=== PATIENT | female | born 1995 | race Caucasian/White ===

== ENCOUNTER 2024-02-26 20:54 | Inpatient (IN) ==
[2024-02-26] MEDS ORDERED: Dinoprostone 10 MG VAG.SUPP VAGINAL ONE (21:29)
[2024-02-26] MEDS ORDERED: Lactated Ringers 1000 ml BAG 1,000 ML IV SCH (22:00)
[2024-02-27] MEDS: Buffered Lidocaine 1% SYRIN 1 ml INTRADERM ONE (10:30)
[2024-02-27] MEDS: Lactated Ringers 1000 ml BAG 1,000 ML IV ONE ×2 (10:31→19:30)
[2024-02-27 10:36] LABS: ABS Lymphocytes 1.5 10^3/uL (1.0-4.8); ABS Monocytes 0.7 10^3/uL (0.0-0.9); ABS Nucleated RBC 0.01 10^3/ul; Eosinophil % 0.4 %; Hematocrit 35.1 % (35-45); Hemoglobin 11.8 g/dL (11.5-14.3); Lymphocyte % 18.6 %; Mean Corpuscular Hemoglobin 26.6 pg (27-33); Mean Corpuscular Hgb Conc 33.8 g/dL (31-36); Mean Corpuscular Volume 78.7 fL (80-97); Mean Platelet Volume 8.4 fL (7.5-11.2); Nucleated Red Blood Cells % 0.2 %/100WBC (0.0-0.8); Platelet Count 243 10^3/uL (150-450); Red Blood Count 4.46 10^6/uL (3.63-4.92); White Blood Count 8.3 10^3/uL (3.8-11.8)
[2024-02-27 10:46] LABS: Activated Partial Thrombo Time 18.9 seconds (26.0-38.0); INR 0.95 (0.83-1.13)
[2024-02-27 10:54] LABS: Platelet Count 232 10^3/ul (150-450)
[2024-02-27 11:10] LABS: Schistocytes ABSENT
[2024-02-27 13:49] LABS: Urine Benzodiazepine Screen None Detected (None Detect); Urine Cannabinoids Screen None Detected (None Detect); Urine Opiates Screen None Detected (None Detect)
[2024-02-27] MEDS: miSOPROStol 100 mcg TAB PO SCH (14:26)
[2024-02-27] MEDS ORDERED: Sodium Citrate/Citric Acid LIQ 15 ML UDC PO PRN (19:00)
[2024-02-27] MEDS ORDERED: Midazolam 2 mg/2 ml VIAL 1 mg/ml 2 ml VIAL (2 mg) ONE (19:12)
[2024-02-27] MEDS: OBEPIDURAL (200 ML) 200 ML EPIDURAL SCH (20:26)
[2024-02-27 21:45] LABS: Urine Appearance Clear; Urine Bilirubin Negative (Negative); Urine Blood Negative (Negative); Urine Color Light-Yellow; Urine Glucose Negative (Negative); Urine Ketones 2+ (Negative); Urine Nitrite Negative (Negative); Urine Protein Negative (Negative); Urine Specific Gravity 1.011 (1.002-1.030); Urine Urobilinogen Negative (Negative)
[2024-02-28] MEDS: Lactated Ringers 1000 ml BAG 1,000 ML IV SCH ×2 (00:46→14:51)
[2024-02-28] MEDS: Oxytocin in LR 20,000 MILLI.UNIT/1,000 ML BAG IV SCH ×2 (01:29→14:27)
[2024-02-28] MEDS ORDERED: Midazolam 2 mg/2 ml VIAL 1 mg/ml 2 ml VIAL (2 mg) IV SLOW PU ONE (04:03)
[2024-02-28] MEDS: Bupivacaine 0.25% SDV PF 10 ML VIAL INJ ONE (04:22)
[2024-02-28] MEDS: fentaNYL 100 mcg/2 ml 50 MCG/ML VIAL ONE (04:23)
[2024-02-28] MEDS: OBEPIDURAL (200 ML) 200 ML EPIDURAL ONE (04:23)
[2024-02-28] MEDS: OBEPIDURAL (200 ML) 200 ML EPIDURAL SCH (04:25)
[2024-02-28 07:09] LABS: Albumin 3.2 g/dL (3.2-5.2); Albumin/Globulin Ratio 1.3 (1-3); Calcium 8.4 mg/dL (8.6-10.3); Creatinine, Serum 0.59 mg/dL (0.51-0.95); Globulin 2.4 g/dL (2-4); Potassium 3.8 mmol/L (3.5-5.0); Total Bilirubin 0.4 mg/dL (0.2-1.0); Total Protein 5.6 g/dL (6.4-8.9)
[2024-02-28] MEDS: NS 0.9% EPIDURAL SCH (12:10)
[2024-02-28] MEDS: ROPIVACAINE EPIDURAL SCH (12:10)
[2024-02-28] MEDS: Midazolam 2 mg/2 ml VIAL 1 mg/ml 2 ml VIAL (2 mg) IV SLOW PU ONE (12:14)
[2024-02-28] MEDS ORDERED: ceFAZolin 2 GM PREMIX 2 GM/50 ML BAG ONE (13:09)
[2024-02-28] MEDS ORDERED: Glycerin ADULT 2.4 gm SUPP PR PRN (13:27)
[2024-02-28] MEDS: ceFAZolin 2 GM/50 ML BAG IV ONE (13:30)
[2024-02-28] MEDS ORDERED: Lactated Ringers 1000 ml BAG 1,000 ML IV SCH (14:00)
[2024-02-28] MEDS: Lidocaine 1% VIAL 10 MG/ML 30 ML VIAL INJ PRN (14:25)
[2024-02-28] MEDS: Acetaminophen IV 1 GM/100ML 1,000 MG/100 ML BAG IV ONE (14:39)
[2024-02-28] MEDS: Lidocaine 1.5% EPI 1:200,000 30 ML SDV ONE (14:52)
[2024-02-28] MEDS: Lactated Ringers 1000 ml BAG 1,000 ML IV ONE (14:52)
[2024-02-28] MEDS: Ropivacaine (OR use only) 2 MG/ML 10 ML ONE ×2 (14:52)
[2024-02-28] MEDS: Dibucaine 1% OINT 28.35 GM TUBE PR PRN (17:38)
[2024-02-28] MEDS: Witch Hazel PAD JAR TOPICAL PRN (17:38)
[2024-02-29 02:11] VITALS: BP 108/69
[2024-02-29 08:59] LABS: ABS Eosinophils 0.1 10^3/uL (0.0-0.5); ABS Lymphocytes 1.6 10^3/uL (1.0-4.8); ABS Monocytes 0.8 10^3/uL (0.0-0.9); ABS Neutrophils 8.2 10^3/uL (1.5-7.6); Eosinophil % 0.8 %; Hematocrit 29.5 % (35-45); Hemoglobin 10.1 g/dL (11.5-14.3); Lymphocyte % 14.7 %; Mean Corpuscular Hemoglobin 26.8 pg (27-33); Mean Corpuscular Hgb Conc 34.2 g/dL (31-36); Mean Corpuscular Volume 78.2 fL (80-97); Mean Platelet Volume 7.2 fL (7.5-11.2); Platelet Count 233 10^3/uL (150-450); Red Blood Count 3.77 10^6/uL (3.63-4.92); Red Cell Distribution Width 14.2 % (12-17); White Blood Count 10.7 10^3/uL (3.8-11.8)
[2024-02-29 20:29] LABS: Fetal-Maternal Bleed Negative mL (0-1.5)
[2024-03-01 10:50] LABS: DRVVT Screen Ratio 0.95 ratio (<1.20); LAC APTT 27 sec (25 - 37); LAC INR 1.1 (0.9-1.1); Prothrombin Time(LAC) 11.6 sec (9.4 - 12.5)
== END 2024-02-29 13:38 | disposition home or self-care (01) | DRG 541 ==
LOC: MCHOBOUT 20:54 → MCHOB 22:01
PROVIDERS: ADMIT Obstetrics & Gynecology; ATTEND Obstetrics & Gynecology